=== PATIENT | female | born 1975 | race American Indian/Alaskan Native ===

== ENCOUNTER 2016-12-14 23:45 | Emergency (ER) | payer BC, MEDICAID ==
[2016-12-15] MEDS ORDERED: ZOFRAN ODT PO ONE (00:04)
--- NOTE | 2016-12-15 00:08 | Emergency Department Report ---
<GODWIN ONEIL - Last Filed: 12/15/16 02:12> ED Abdominal Pain HPI - General Stated Complaint: CHEST/ABD PAIN Time Seen by Provider: 12/14/16 23:59 - History of Present Illness Initial Comments: Patient is a 41-year-old female with history of hyperlipidemia, active tobacco smoker but in by ambulance today because of abdominal pain and nausea vomiting. Patient was found by EMS to initially be hypertensive followed by hypotensive and had labile blood pressure. However upon arrival she had a normal blood pressure here of 139/86. She vomited nonbloody nonbilious multiple times prior to her arrival and complained about epigastric abdominal pain and chest pain. She also had a significant urge to stool upon arrival. Only prior abdominal surgery is . Severity scale (0 -10): 10 - Related Data Previous Rx's Medication Instructions Recorded Last Taken Type Aspirin EC [Aspirin Enteric Coated 81 mg PO QDAY #30 tablet. 05/24/14 Unknown Rx TAB] Famotidine [Pepcid] 20 mg PO DAILY #30 tablet 05/24/14 Unknown Rx Amoxicillin/K Clav Tab [Augmentin 1 tab PO Q12HR #14 tab 08/18/15 Unknown Rx 875 mg] Ibuprofen [Motrin] 800 mg PO Q8HR PRN #30 tablet 08/18/15 Unknown Rx traMADol [Ultram] 50 mg PO Q6HR PRN #14 tablet 08/18/15 Unknown Rx HYDROcodone/APAP 5-325 [[place] 1 each PO Q6HR PRN #20 tablet 12/15/16 Unknown Rx 5/325] Ondansetron [Zofran ODT TAB] 8 mg PO Q8HR PRN #20 tab.rapdis 12/15/16 Unknown Rx Allergies Allergy/AdvReac Type Severity Reaction Status Date / Time No Known Allergies Allergy Unverified 09/24/13 13:32 ED Review of Systems ROS: Stated complaint: CHEST/ABD PAIN Other details as noted in HPI Comment: All other systems reviewed and negative Constitutional: denies: chills, fever Respiratory: denies: cough Cardiovascular: chest pain Gastrointestinal: abdominal pain, nausea, vomiting, diarrhea Genitourinary: denies: urgency, dysuria, frequency Skin: denies: rash Psychiatric: anxiety ED Past Medical Hx - Past Medical History Hx Hypertension: Yes Hx Congestive Heart Failure: No Hx Diabetes: No Hx Asthma: No Hx COPD: No - Surgical History Additional Surgical History: Hysterectomy 2 fibroid tumors - Social History Smoking Status: Current Every Day Smoker Substance Use Type: Alcohol - Medications Home Medications: Home Medications Medication Instructions Recorded Confirmed Last Taken Type Aspirin EC [Aspirin Enteric Coated 81 mg PO QDAY #30 tablet.dr 05/24/14 Unknown Rx TAB] Famotidine [Pepcid] 20 mg PO DAILY #30 tablet 05/24/14 Unknown Rx Amoxicillin/K Clav Tab [Augmentin 1 tab PO Q12HR #14 tab 08/18/15 Unknown Rx 875 mg] Ibuprofen [Motrin] 800 mg PO Q8HR PRN #30 tablet 08/18/15 Unknown Rx traMADol [Ultram] 50 mg PO Q6HR PRN #14 tablet 08/18/15 Unknown Rx HYDROcodone/APAP 5-325 [[place] 1 each PO Q6HR PRN #20 tablet 12/15/16 Unknown Rx 5/325] Ondansetron [Zofran ODT TAB] 8 mg PO Q8HR PRN #20 tab.rapdis 12/15/16 Unknown Rx ED Physical Exam - General Limitations: No Limitations General appearance: alert - Head Head exam: Present: atraumatic - Eye Eye exam: Present: normal appearance - Respiratory Respiratory exam: Present: normal lung sounds bilaterally - Cardiovascular Cardiovascular Exam: Present: regular rate, normal heart sounds - GI/Abdominal GI/Abdominal exam: Present: soft, tenderness (moderate right upper quadrant and epigastric tenderness, Mccann's positive). Absent: distended - Extremities Exam Extremities exam: Present: normal inspection, normal capillary refill - Neurological Exam Neurological exam: Present: alert, oriented X3 - Psychiatric Psychiatric exam: Present: normal affect, other (condition initially agitated however soon after assessment patient calmed down and does not appear to be in significant pain) - Skin Skin exam: Present: intact ED Course Vital Signs 12/14/16 12/15/16 12/15/16 23:58 00:56 01:04 Temperature 98.6 F 98.6 F Pulse Rate 86 86 Respiratory 20 20 20 Rate Blood Pressure 139/86 Blood Pressure 139/86 [Left] O2 Sat by Pulse 99 99 Oximetry 12/15/16 01:15 Temperature Pulse Rate Respiratory 20 Rate Blood Pressure Blood Pressure [Left] O2 Sat by Pulse 99 Oximetry ED Medical Decision Making - Lab Data Result diagrams: 12/15/16 01:10 12/15/16 01:10 - Medical Decision Making labs, morphine, zofran, ekg, u/s gallbladder EKG shows normal sinus rhythm without any signs ST-T changes, narrow QRS, normal axis Labs show leukocytosis, otherwise unremarkable. Ultrasound pending. Transitioned care to Dr. Woods at 2:10 am to follow-up ultrasound results and reassess as well as disposition. Critical care attestation.: If time is entered above; I have spent that time in minutes in the direct care of this critically ill patient, excluding procedure time. ED Disposition Clinical Impression: Gastroenteritis Disposition: DISCHARGED TO HOME OR SELFCARE Condition: Stable Instructions: Abdominal Pain (ED) Prescriptions: HYDROcodone/APAP 5-325 [[place] 5/325] 1 each PO Q6HR PRN #20 tablet PRN Reason: Pain Ondansetron [Zofran ODT TAB] 8 mg PO Q8HR PRN #20 tab.rapdis PRN Reason: Nausea Referrals: PRIMARY CARE, [Primary Care Provider] - 3-5 Days <JAYNE WOODS - Last Filed: 12/15/16 03:51> ED Medical Decision Making - Lab Data Result diagrams: 12/15/16 01:10 12/15/16 01:10 - Radiology Data Radiology results: report reviewed Right upper quadrant ultrasound reveals no evidence of cholelithiasis or cholecystitis. - Medical Decision Making Lab and imaging results reviewed and discussed with the patient. Patient reports feeling better with medication and IV fluids. Patient will be discharged home at this time. ED Disposition Is pt being admited?: No Time of Disposition: 03:51
[2016-12-15] MEDS ORDERED: MORPHINE IV ONE ×2 (00:33→03:50)
[2016-12-15] MEDS ORDERED: ZOFRAN IV ONE ×2 (00:33→03:50)
[2016-12-15 01:27] LABS: Hematocrit 43.2 % (30.3-42.9); Hemoglobin 14.4 gm/dl (10.1-14.3); Mean Corpuscular HGB Conc 33 % (30-34); Mean Corpuscular Hemoglobin 29 pg (28-32); Mean Corpuscular Volume 87 fl (79-97); Platelet Count 254 K/mm3 (140-440); Red Blood Count 4.98 M/mm3 (3.65-5.03); Red Cell Distribution Width 13.3 % (13.2-15.2)
[2016-12-15 01:28] LABS: White Blood Count 21.9 K/mm3 (4.5-11.0)
[2016-12-15 01:48] LABS: Alanine Aminotransferase 19 units/L (7-56); Albumin 4.2 g/dL (3.9-5); Albumin/Globulin Ratio 1.4 %; Alkaline Phosphatase 96 units/L (35-129); Bilirubin,Total 0.3 mg/dL (0.1-1.2); Blood Urea Nitrogen 14 mg/dL (7-17); Carbon Dioxide 25 mmol/L (22-30); Chloride 103.8 mmol/L (98-107); Glucose 118 mg/dL (65-100); Lipase 28 units/L (13-60); Potassium 4.3 mmol/L (3.6-5.0); Sodium 142 mmol/L (137-145); Total Protein 7.1 g/dL (6.3-8.2)
[2016-12-15 02:08] LABS: Anion Gap 18 mmol/L; Bilirubin,Direct < 0.2 mg/dL (0-0.2); Bilirubin,Indirect 0.1 mg/dL
--- NOTE | 2016-12-15 02:17 | Ultrasound Report ---
FINAL REPORT PROCEDURE: US ABDOMEN LIMITED TECHNIQUE: Real-time sonography in multiple planes of the gallbladder fossa and CBD with imaging of the adjacent liver, pancreas, and right kidney was performed with image documentation. CPT 52608 HISTORY: ruq tenderness, ro cholecystitis COMPARISON: No prior studies are available for comparison. FINDINGS: Liver: Normal size and echotexture with no evidence of cystic or solid mass lesion. Gallbladder: Fluid filled. No gallstones, wall thickening, pericholecystic fluid, or sonographic Mccann's sign . Intrahepatic bile ducts: Normal . Extrahepatic bile ducts: Normal . Pancreas: Normal as visualized with suboptimal depiction of the pancreatic tail. Right kidney: There is a 14 millimeter stone. There is no mass or hydronephrosis.. Other: No free fluid. IMPRESSION: There is no cholelithiasis, cholecystitis or biliary ductal dilatation. There is right nephrolithiasis without obstruction.
[2016-12-15] MEDS ORDERED: NACL 0.9% 1000 ML 1,000 ML ONE (02:37)
[2016-12-15] MEDS ORDERED: NACL 0.9% 1000 ML 1,000 ML IV ONE (02:39)
--- NOTE | 2016-12-15 02:42 | Admit Criteria Form ---
Admission Criteria Documentation: ABDOMINAL PAIN Clinical Indications for Admission to Inpatient Care (Place 'X' for any and all applicable criteria): Admission is indicated for ANY ONE of the following(1)(2)(3)(4)(5): [X ]I. Inpatient admission required rather than observation care (Also use Abdominal Pain: Observation Care, as appropriate) because of ANY ONE of the following: [X ]a) Severe pain requiring acute inpatient management [ ]b) Identification of etiology/finding that requires inpatient care (eg, aortic dissection, free air) [ ]c) Absent bowel sounds with complete ileus(6) [ ]d) Suspected toxic megacolon [ ]e) Severe electrolyte abnormalities requiring inpatient care [ ]f) High fever or infection requiring inpatient admission as indicated by ANY ONE of following(7)(8): [ ] i) Appropriate outpatient or observational care antimicrobial treatment unavailable, not effective, or not feasible [ ] ii) Documented bacteremia [ ] iii) Temperature > 104.9 degrees F (oral) [ ] iv) T >103.1 F (oral) or < 96.8 F(rectal) that does not respond to all emergency treatment measures [ ]g) Signs of intestinal obstruction [B] [ ]h) Hemodynamic instability [ ]i) IV fluid to replace significant ongoing losses (greater than 3 L/m2 per day) (12)(13) [ ]j) Percutaneous or open drainage (eg, abscess, biliary tract ) procedures [ ]k) Parenteral nutrition regimen that must be implemented on inpatient basis [ ]l) Other condition,treatment or monitoring requiring inpatient admission. [ ]II. Peritoneal signs present [ ]III. Surgery needed that cannot be performed on an ambulatory basis. [ ]IV. Evaluation requires patient to not eat or drink for extended period ( eg, more than 24 hours). [ ]V. Contraindications and/or Inappropriate clinical situations for Observational Care in patients with abdominal pain, when ANY ONE of the following is required: [ ]a) Thorough evaluation is required to prevent catastrophic events due to delays in diagnosing (e.g.Mesenteric ischemia) 1,3 [ ]b) Patient with severe pathology or with chronic symptoms unlikely to improve in the ED stay (3) [ ]. General contraindications and/or Inappropriate clinical situations for Observational Care in patients with abdominal pain, when ANY ONE of the following is required: [ ]a) Prediction of prolongation of LOS based on ANY ONE of the following may be considered as a contraindication for observational care 2, 3, 4, 5, 6, 7, 8, 9, 10, 11 [ ]i) Age > 65 yrs. [ ]ii) Patient arriving by ambulance [ ]iii) Patient with high acuity [ ]iv) Patient requiring vital sign monitoring [ ]v) Patient on IV medication [ ]b) Systolic blood pressures 180mmHg 3,12 [ ]c) Patient with altered mental status including delirium and other alteration of consciousness, (3) [ ]d) Patient whose discharge disposition will be to a nursing home home or rehabilitation home should not be managed in Emergency Department Observation Unit. CMS rule requires 3 days hospital stay before such placement.3,13 [ ]e) Patient with failure to thrive due to broad array of etiologies 3,16,17 [ ]f) Inability to ambulate 3,14 Extended stay beyond goal length of stay may be needed for(2)(3): [ ]a) Persistent abdominal pain with suspected intra-abdominal process [ ]b) Diagnosed condition requiring continued stay (e.g., pancreatitis, complicated diverticulitis) [ ]c) Surgery (e.g., colectomy) The original [facility] content created by [employer] has been revised. The portions of the content which have been revised are identified through the use of italic text or in bold, and [facility] has neither reviewed nor approved the modified material.All other unmodified content is copyright [facility]. Please see references footnoted in the original [facility] edition 2016 Admission Criteria Met: Yes
[2016-12-15 03:54] VITALS: BP 138/87
[2016-12-15 06:00] LABS: Basophils % (Manual) 0 % (0.0-1.8); Blastocytes % (Manual) 0 %; Eosinophils % (Manual) 0 % (0.0-4.3)
[2016-12-15 06:01] LABS: Anisocytosis 1+; Diff Status Complete
== END 2016-12-15 04:00 | disposition home or self-care (01) ==
LOC: ED 23:45
DX: K52.9 Noninfective gastroenteritis and colitis, unspecified (principal); I10 Essential (primary) hypertension; F17.200 Nicotine dependence, unspecified, uncomplicated
CPT/HCPCS: 36415; 76705; 80048; 80074; 83690; 84703; 85007; 85025; 93005; 93010; 96361; 96374; 96375; 96376; 99284; J2270; J2405; J7030

== ENCOUNTER 2017-03-06 07:00 | Emergency (ER) | payer MEDICAID ==
[2017-03-06] MEDS ORDERED: TORADOL IM ONE (07:47)
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
[2017-03-06] MEDS ORDERED: BENADRYL PO ONE (07:48)
[2017-03-06] MEDS ORDERED: DELTASONE PO ONE (07:48)
[2017-03-06 08:50] VITALS: BP 136/82
== END 2017-03-06 09:00 | disposition home or self-care (01) ==
LOC: ED 07:00
DX: L03.011 Cellulitis of right finger (principal); I10 Essential (primary) hypertension; F17.200 Nicotine dependence, unspecified, uncomplicated; W57.XXXA Bitten or stung by nonvenomous insect and other nonvenomous arthropods, initial encounter; Y93.9 Activity, unspecified; Y92.9 Unspecified place or not applicable; Y99.9 Unspecified external cause status
CPT/HCPCS: 96372; 99282; J1885; J7512; Q0163

== ENCOUNTER 2017-03-13 19:59 | Emergency (ER) | payer MEDICAID | END 2017-03-14 00:55 | disposition left against medical advice (07) | LOC: ED 19:59 | DX: R53.1 Weakness (principal); Z53.21 Procedure and treatment not carried out due to patient leaving prior to being seen by health care provider ==

== ENCOUNTER 2018-05-18 22:00 | Emergency (ER) | payer SELFPAY ==
[2018-05-18 22:29] VITALS: BP 123/58
[2018-05-18] MEDS ORDERED: ASPIRIN PO ONE (22:29)
[2018-05-18 22:51] LABS: Basophils # (Auto) 0.1 K/mm3 (0.0-0.1); Basophils % (Auto) 0.9 % (0.0-1.8); Eosinophils # (Auto) 0.6 K/mm3 (0.0-0.4); Eosinophils % (Auto) 4.9 % (0.0-4.3); Hematocrit 37.9 % (30.3-42.9); Hemoglobin 12.9 gm/dl (10.1-14.3); Lymphocytes # (Auto) 4.2 K/mm3 (1.2-5.4); Mean Corpuscular HGB Conc 34 % (30-34); Mean Corpuscular Hemoglobin 29 pg (28-32); Mean Corpuscular Volume 86 fl (79-97); Monocytes # (Auto) 1.1 K/mm3 (0.0-0.8); Monocytes % (Auto) 8.5 % (0.0-7.3); Platelet Count 282 K/mm3 (140-440); Red Blood Count 4.42 M/mm3 (3.65-5.03); Red Cell Distribution Width 13.5 % (13.2-15.2)
[2018-05-19 00:09] LABS: BUN/Creatinine Ratio 20; Blood Urea Nitrogen 14 mg/dL (7-17); Calcium 9.1 mg/dL (8.4-10.2); Hemolysis Index 9
== END 2018-05-18 22:45 | disposition left against medical advice (07) ==
LOC: ED 22:00
DX: R07.9 Chest pain, unspecified (principal); R42 Dizziness and giddiness; Z53.21 Procedure and treatment not carried out due to patient leaving prior to being seen by health care provider
CPT/HCPCS: 36415; 80048; 84484; 85025; 93005; 93010